=== PATIENT | male | born 1995 | race Hispanic/Latino ===

== ENCOUNTER 2023-11-29 18:29 | Emergency (ER) | payer OTHER ==
[~2023-11-29] VITALS: Ht 165.1 cm; Wt 86.2 kg
[2023-11-29 19:30] VITALS: BP 122/74; PULSE 78; RESP 20; TEMP 97.9; O2SAT 100
== END 2023-11-29 19:35 ==
LOC: EDH 19:09
DX: Z04.1 Encounter for examination and observation following transport accident (principal); V89.2XXA Person injured in unspecified motor-vehicle accident, traffic, initial encounter; Y93.89 Activity, other specified; Y92.488 Other paved roadways as the place of occurrence of the external cause; Y99.8 Other external cause status
CPT/HCPCS: 99282